=== PATIENT | male | born 1945 | race Caucasian/White ===

== ENCOUNTER → 2017-04-12 12:30 | Outpatient (CLI) | payer MEDICARE, BC, SELFPAY ==
[2017-04-12 13:36] LABS: Prostate Specific Ag, Diagnost 19.57 ng/mL (0.0-4.0)
== END ==
LOC: LAB 12:33
PROVIDERS: PCP Emergency Medicine; Visit Provider Urology
DX: R97.20 Elevated prostate specific antigen [PSA] (principal)
CPT/HCPCS: 36415; 84153

== ENCOUNTER 2017-04-12 14:01 | Emergency (ER) | payer MEDICARE, BC, SELFPAY ==
[2017-04-12 14:02] VITALS: BP 100/44; PULSE 97; RESP 14; TEMP 36.9; O2SAT 988; BMI 42.7
--- NOTE | 2017-04-12 15:10 | HMH.EDGENADL ---
ED Disposition Clinical Impression: Herpes zoster Qualifiers: Herpes zoster complications: without complications Qualified Code(s): B02.9 - Zoster without complications Disposition: Home, Self-Care Condition on Discharge: Good Instructions: DI for Skin Abscess Additional Instructions: Please take the prescription for acyclovir as per Dr Clemons's instructions (whom you have seen earlier today). Please keep the lesions covered, as it may contaminate other residents. Referrals: Zay Bob MD [Primary Care Provider] - Time of Disposition: 15:11 - Critical Care Critical Care Time: No Attestation: On 04/12/17, the high probability of a clinically significant, sudden or life threatening deterioration of the following system(s) required my full and direct attention, intervention and personal management. The time I documented below is in addition to time spent performing reported procedures but includes the following listed in this critical care notation. Medical Decision Making - Medical Records Medical records reviewed: Yes: I reviewed the patient's medical records. Vital Signs: 04/12/17 14:02 04/12/17 17:54 Temperature 98.5 F 98.5 F Temperature Source Oral Oral Pulse Rate 89 Pulse Rate [Left Brachial] 97 H Respiratory Rate 14 14 Blood Pressure 136/60 Blood Pressure [Right Arm] 100/44 Blood Pressure Mean [Right Arm] 62 Blood Pressure Source Automatic Cuff Blood Pressure Source [Right Arm] Automatic Cuff Blood Pressure Position Sitting Blood Pressure Position [Right Arm] Sitting 02 Sat by Pulse Oximetry 988 H Oxygen Delivery Method Room Air Room Air - Edis Inquiry Pt receiving controlled substance: No - Reevaluation(s) Time: 14:50 Reevaluation #1: Patient appears in no acute distress, advised to continue the prescription given by Dr. Clemons, acyclovir, and keep affected area covered, to prevent possible exposure to other residents. General Adult HPI - General Chief complaint: Skin/Abscess/Foreign Body Stated complaint: shinglessssssssssss Time Seen by Provider: 04/12/17 14:20 Mode of Arrival: Ambulatory Limitations: No Limitations Description of Symptoms (Recalled from ER Triage Doc. by RN): Pt sent here for shingles. Pt seen this morning and was given medicine. They were concerned with pt being in contact with other residents. - History of Present Illness HPI narrative: Patient was already seen at that Dr. Clemons's office for urinary problems, prior to presentation to the emergency room. Dr. Clemons has called the emergency room asking for advice on treatment of what appears to be shingles on patient's right upper abdomen, with onset approximately 2 days ago. MD complaint: rash, apin in th eright upper anterior abdomen Onset (ago): day(s) (2-3) Location: abdomen (right upper abd) Radiation: non-radiation Severity: moderate Severity scale (1-10): 6 Quality: burning Consistency: intermittent Relieving factors: none - Related Data Home Medications Medication Instructions Recorded Confirmed acetaminophen 500 mg capsule 500 mg PO Q4H PRN 04/12/17 docusate sodium 250 mg capsule 250 mg PO QDAY 04/12/17 folic acid 1 mg tablet 1 mg PO QDAY 04/12/17 hydroxyzine pamoate 25 mg capsule 25 mg PO TID-QID PRN 04/12/17 mirtazapine 15 mg tablet 15 mg PO QHS 04/12/17 multivitamin capsule 1 cap PO QAM 04/12/17 thiamine HCl (vitamin B1) 100 100 mg IV QDAY 04/12/17 mg/mL injection solution trazodone 50 mg tablet 50 mg PO QHS PRN 04/12/17 Allergies Allergy/AdvReac Type Severity Reaction Status Date / Time PCN (penicillin) Allergy Unknown Uncoded 03/13/17 15:34 [facility] History I have reviewed the patient's past medical history: Yes Medical History: Denies:: Cancer, Diabetes Mellitus Type 1, Diabetes Mellitus Type 2, MRSA Amputation: No Fractures: No - *Social History Alcohol Intake: never - Psychiatric History Expresses thoughts of harming self/others: None Dory
[2017-04-12 17:54] VITALS: BP 136/60; PULSE 89; RESP 14; TEMP 36.9; O2SAT 98
== END 2017-04-12 17:56 | disposition home or self-care (01) ==
PROVIDERS: Emergency Provider Emergency Medicine; PCP Emergency Medicine
DX: B02.9 Zoster without complications (principal); Z79.899 Other long term (current) drug therapy; Z88.0 Allergy status to penicillin; R97.20 Elevated prostate specific antigen [PSA]
CPT/HCPCS: 36415; 84153; 99282

== ENCOUNTER 2017-05-03 07:46 | Emergency (ER) | payer MEDICARE, BC, SELFPAY ==
[2017-05-03 07:48] VITALS: BP 107/45; PULSE 62; RESP 20; TEMP 36.7; O2SAT 97; BMI 26.6
--- NOTE | 2017-05-03 08:08 | HMH.EDGENADL ---
ED Disposition Clinical Impression: Cellulitis Qualifiers: Site of cellulitis: unspecified site Qualified Code(s): L03.90 - Cellulitis, unspecified Disposition: Home, Self-Care Condition on Discharge: Good Instructions: Cellulitis Additional Instructions: have wound care at intermediate see pt and manage wound - Critical Care Critical Care Time: No Attestation: On , the high probability of a clinically significant, sudden or life threatening deterioration of the following system(s) required my full and direct attention, intervention and personal management. The time I documented below is in addition to time spent performing reported procedures but includes the following listed in this critical care notation. Medical Decision Making - Medical Records Medical records reviewed: Yes: I reviewed the patient's medical records. Vital Signs: 05/03/17 07:48 Temperature 98.1 F Temperature Source Oral Pulse Rate [Right Radial] 62 Respiratory Rate 20 Blood Pressure [Right Arm] 107/45 Blood Pressure Mean [Right Arm] 65 Blood Pressure Source [Right Arm] Automatic Cuff Blood Pressure Position [Right Arm] Sitting 02 Sat by Pulse Oximetry 97 Oxygen Delivery Method Room Air - Lab Data Lab results reviewed: Yes: I reviewed the patient's lab results. Orders (Tests/Meds): ORDERS Category Date Time Status Wound Culture and Gram Stain Routine Micro 05/03/17 08:00 Ordered - Edis Inquiry Pt receiving controlled substance: No General Adult HPI - General Chief complaint: PAIN Stated complaint: OPEN AREA TO ANTECUBITAL Time Seen by Provider: 05/03/17 08:08 Mode of Arrival: EMS Limitations: No Limitations Description of Symptoms (Recalled from ER Triage Doc. by RN): PT HAS AN APPROX 1 1/2 INCH OPEN AREA TO R ANTECUBITAL AREA WITH REDNESS AND SWELLING . PT ALSO C/O RASH TO THE R SIDE GOING AROUND TO THE FLANK AREA WITH LOTS OF PAIN X 2 WEEKS NO OPEN SORES APPEARS TO BE IMPROVING - History of Present Illness HPI narrative: pt with open area rt antecubital and has resolving shingles Onset (ago): hour(s) Location: upper extremity Severity: moderate - Related Data Home Medications Medication Instructions Recorded Confirmed acetaminophen 500 mg capsule 500 mg PO Q4H PRN 04/12/17 docusate sodium 250 mg capsule 250 mg PO QDAY 04/12/17 folic acid 1 mg tablet 1 mg PO QDAY 04/12/17 hydroxyzine pamoate 25 mg capsule 25 mg PO TID-QID PRN 04/12/17 mirtazapine 15 mg tablet 15 mg PO QHS 04/12/17 multivitamin capsule 1 cap PO QAM 04/12/17 thiamine HCl (vitamin B1) 100 100 mg IV QDAY 04/12/17 mg/mL injection solution trazodone 50 mg tablet 50 mg PO QHS PRN 04/12/17 Allergies Allergy/AdvReac Type Severity Reaction Status Date / Time PCN (penicillin) Allergy Mild Uncoded 05/03/17 08:03 [facility] History I have reviewed the patient's past medical history: Yes Medical History: Denies:: Cancer, Diabetes Mellitus Type 1, Diabetes Mellitus Type 2, MRSA Amputation: No Fractures: No - *Social History Alcohol Intake: never ROS Obtained: Yes All systems reviewed & no additional complaints - Constitutional Constitutional: Denies fever(s) - Eyes Eyes: Denies change in vision - ENT Ears, Nose, Mouth, and Throat: Denies sore throat - Cardiovascular Cardiovascular: Denies chest pain at rest - Respiratory Respiratory: No cough - Gastrointestinal Gastrointestingal: Denies: abdominal pain - Musculoskeletal Musculoskeletal: Denies joint pain - Integumentary/Breasts Skin/Breast: Reports as per HPI - Neurologic Neurologic: Denies seizure-like activity Physical Exam - General General appearance: in no apparent distress - Head Head exam: normocephalic - Eye Eye exam: Present: PERRL, EOMI - ENT ENT exam: Present: mucous membranes moist - Neck Neck exam: Present: trachea midline - Respiratory Respiratory exam: Absent: respiratory distress - Cardiovascular Card
--- NOTE | 2017-05-03 08:12 | ED_ITS ---
ED Disposition Clinical Impression: Cellulitis Qualifiers: Site of cellulitis: unspecified site Qualified Code(s): L03.90 - Cellulitis, unspecified Disposition: Home, Self-Care Condition on Discharge: Good Instructions: Cellulitis Additional Instructions: have wound care at skilled nursing see pt and manage wound - Critical Care Critical Care Time: No Attestation: On , the high probability of a clinically significant, sudden or life threatening deterioration of the following system(s) required my full and direct attention, intervention and personal management. The time I documented below is in addition to time spent performing reported procedures but includes the following listed in this critical care notation. Medical Decision Making - Medical Records Medical records reviewed: Yes: I reviewed the patient's medical records. Vital Signs: 05/03/17 07:48 Temperature 98.1 F Temperature Source Oral Pulse Rate [Right Radial] 62 Respiratory Rate 20 Blood Pressure [Right Arm] 107/45 Blood Pressure Mean [Right Arm] 65 Blood Pressure Source [Right Arm] Automatic Cuff Blood Pressure Position [Right Arm] Sitting 02 Sat by Pulse Oximetry 97 Oxygen Delivery Method Room Air - Lab Data Lab results reviewed: Yes: I reviewed the patient's lab results. Orders (Tests/Meds): ORDERS Category Date Time Status Wound Culture and Gram Stain Routine Micro 05/03/17 08:00 Ordered - Edis Inquiry Pt receiving controlled substance: No General Adult HPI - General Chief complaint: PAIN Stated complaint: OPEN AREA TO ANTECUBITAL Time Seen by Provider: 05/03/17 08:08 Mode of Arrival: EMS Limitations: No Limitations Description of Symptoms (Recalled from ER Triage Doc. by RN): PT HAS AN APPROX 1 1/2 INCH OPEN AREA TO R ANTECUBITAL AREA WITH REDNESS AND SWELLING . PT ALSO C /O RASH TO THE R SIDE GOING AROUND TO THE FLANK AREA WITH LOTS OF PAIN X 2 WEEKS NO OPEN SORES APPEARS TO BE IMPROVING - History of Present Illness HPI narrative: pt with open area rt antecubital and has resolving shingles Onset (ago): hour(s) Location: upper extremity Severity: moderate - Related Data Home Medications Medication Instructions Recorded Confirmed acetaminophen 500 mg capsule 500 mg PO Q4H PRN 04/12/17 docusate sodium 250 mg capsule 250 mg PO QDAY 04/12/17 folic acid 1 mg tablet 1 mg PO QDAY 04/12/17 hydroxyzine pamoate 25 mg capsule 25 mg PO TID-QID PRN 04/12/17 mirtazapine 15 mg tablet 15 mg PO QHS 04/12/17 multivitamin capsule 1 cap PO QAM 04/12/17 thiamine HCl (vitamin B1) 100 100 mg IV QDAY 04/12/17 mg/mL injection solution trazodone 50 mg tablet 50 mg PO QHS PRN 04/12/17 Allergies Allergy/AdvReac Type Severity Reaction Status Date / Time PCN (penicillin) Allergy Mild Uncoded 05/03/17 08:03 [facility] History I have reviewed the patient's past medical history: Yes Medical History: Denies:: Cancer, Diabetes Mellitus Type 1, Diabetes Mellitus Type 2, MRSA Amputation: No Fractures: No - *Social History Alcohol Intake: never ROS Obtained: Yes All systems reviewed & no additional complaints - Constitutional Constitutional: Denies fever(s) - Eyes Eyes: Denies change in vision - ENT Ears, Nose, Mouth,
--- NOTE | 2017-05-03 08:15 | PC.NURSE ---
Pt has a wound to right a/c. Wound cleaned with hibiclens and sterile water. Bacitracin applied. Wound dressed with telfa and mesh sleeve applied (per Dr Bob) Pt tolerated well.
[2017-05-03 09:16] VITALS: BP 108/75; PULSE 64; RESP 18; TEMP 37; O2SAT 97
== END 2017-05-03 09:15 | disposition home or self-care (01) ==
PROVIDERS: Emergency Provider Emergency Medicine; PCP Emergency Medicine
DX: L03.111 Cellulitis of right axilla (principal); Z79.899 Other long term (current) drug therapy; Z88.0 Allergy status to penicillin
CPT/HCPCS: 87070; 87077; 87186; 87205; 90471; 90715; 96375; 99281

== ENCOUNTER → 2018-04-11 11:51 | Outpatient (CLI) | payer MEDICARE, BC, SELFPAY ==
[2018-04-11 13:04] LABS: Prostate Specific Ag, Diagnost 18.58 ng/mL (0.0-4.0)
== END ==
PROVIDERS: Visit Provider Urology
DX: R97.20 Elevated prostate specific antigen [PSA] (principal)
CPT/HCPCS: 36415; 84153

== ENCOUNTER 2018-04-23 11:16 | Observation (INO) ==
--- NOTE | 2018-04-23 11:27 | Emergency Department Note ---
ED Disposition Clinical Impression: Abdominal pain, generalized Disposition: Admitted as Observation Condition on Discharge: Fair Instructions: DI for Acute Abdomen Referrals: Zay Bob MD [Primary Care Provider] - - Critical Care Critical Care Time: No Attestation: On , the high probability of a clinically significant, sudden or life threatening deterioration of the following system(s) required my full and direct attention, intervention and personal management. The time I documented below is in addition to time spent performing reported procedures but includes the following listed in this critical care notation. Medical Decision Making - Edis Inquiry Pt receiving controlled substance: Yes Edis was queried for this patient: No Reason not queried -: Emergent pt cond-no time Risks and benefits of using a controlled substance: were not discussed with pt by me Vital Signs: 04/23/18 11:22 04/23/18 11:46 04/23/18 11:47 Temperature 98.1 F Temperature Source Oral Pulse Rate [Left Radial] 50 L 52 L 53 L Respiratory Rate 20 16 14 Blood Pressure [Right Arm] 120/67 131/76 133/72 Blood Pressure Mean [Right Arm] 84 94 92 Blood Pressure Source [Right Arm] Automatic Cuff Automatic Cuff Automatic Cuff Blood Pressure Position [Right Arm] Sitting Sitting Sitting 02 Sat by Pulse Oximetry 98 98 99 Oxygen Delivery Method Room Air Room Air Room Air - Lab Data Lab Results 04/23/18 11:10: WBC 9.1, RBC 3.99 L, Hgb 13.4 L, Hct 42.3, MCV 106.0 H, MCH 33.6 H, MCHC 31.7 L, RDW 12.1, Plt Count 187, MPV 8.4, Neut % (Auto) 63.1, Lymph % (Auto) 30.9, [place] % (Auto) 4.1, Eos % (Auto) 1.3, Baso % (Auto) 0.6, Neut # (Auto) 5.7, Lymph # (Auto) 2.8, [place] # (Auto) 0.4, Eos # (Auto) 0.1, Baso # (Auto) 0.1 04/23/18 11:10: Sodium 140, Potassium 4.4, Chloride 103, Carbon Dioxide 29, A nion Gap 12.4, BUN 12, Creatinine 1.00, Estimated Creat Clear 65, Estimated GFR 74, Est GFR ( Amer) 89, Glucose 149 H, Calcium 8.4 L, Total Bilirubin 0.4, AST 12 L, ALT 16, Alkaline Phosphatase 68, Troponin I < 0.02, Total Protein 7.0, Albumin 3.5, Globulin 3.5 H, Albumin/Globulin Ratio 1.0 L, Amylase 58, Lipase 117 Result diagrams: 04/23/18 11:10 04/23/18 11:10 Orders (Tests/Meds): ED MEDICATIONS Generic Name Dose Route Start Last Admin Trade Name Radhika PRN Reason Stop Dose Admin Sodium Chloride 10 ml 04/23/18 11:22 04/23/18 12:57 Saline Flush 10ml Syringe IV 05/23/18 11:21 10 ml NEEDED PRN Administration Maintain IV Site Sodium Chloride 10 ml 04/23/18 12:35 04/23/18 12:30 Rad-Saline Flush 10ml Syringe IV 05/23/18 12:34 10 ml NEEDED PRN Administration Maintain IV Site Discontinued Medications Generic Name Dose Route Start Last Admin Trade Name Ritchieq PRN Reason Stop Dose Admin Famotidine 20 mg 04/23/18 11:22 04/23/18 11:28 Pepcid 20mg/2ml Vial IV 04/23/18 11:23 20 mg ONCE ONE Administration Iopamidol 100 ml 04/23/18 12:35 04/23/18 12:30 [id number]; 100ml Vial IV 04/23/18 12:36 75 ml ONCE ONE Administration Protocol Ketorolac Tromethamine 15 mg 04/23/18 12:05 04/23/18 12:08 Toradol 30mg/Ml Vial IV 04/23/18 12:06 15 mg ONCE ONE Administration Morphine Sulfate 4 mg 04/23/18 11:22 04/23/18 11:28 Morphine 4mg/Ml Syringe IV 04/23/18 11:23 4 mg ONCE ONE Administration Morphine Sulfate 4 mg 04/23/18 12:05 04/23/18 12:08 Morphine 4mg/Ml Syringe IV 04/23/18 12:06 4 mg ONCE ONE Administration Ondansetron HCl 4 mg 04/23/18 11:22 04/23/18 11:28 Zofran 4mg/2ml Vial IV 04/23/18 11:23 4 mg ONCE ONE Administration Ondansetron HCl 4 mg 04/23/18 12:54 04/23/18 12:57 Zofran 4mg/2ml Vial IV 04/23/18 12:55 4 mg ONCE ONE Administration Sodium Chloride 1,000 ml 04/23/18 11:36 04/23/18 11:42 Sod Chlor 0.9% 1000ml Bag IV 04/23/18 11:37 1,000 ml BOLUS ONE Administration ORDERS Category Date Time Status Urinalysis and Microscopic Stat Lab 04/23/18 11:23 Ordered - CT Data CT Scan: Abdomen, Pelvis Time Received: 13:[address] Reviewed: Yes: I have viewed the radiologist's interpretation Findings Narrative: IMPRESSION: 1. Mild generalized ascites. 2. Nonspecific bowel gas pattern with some scattered air-fluid levels within the small bowel which may be seen with enteritis or ileus. 3. Distended gallbladder. No radio opaque stones. Dictated By: Raheem Brown MD Signed By: <Electronically signed by Raheem Brown MD in OV> 04/23/18 1255 - ECG Data Tracing #1 EKG interpreted by James Hernandez MD: Rhythm: sinus bradycardia Rate: 53 [place]: Right Ectopy: Premature ventricular contraction Conduction: normal ST Segment Changes: none T Wave Changes: none Q Waves: none No evidence of acute ischemia or injury Prior electrocardiagrams reviewed. No change from prior tracings. - Physician Consults Physician Consulted: Paulino Time: 13:27 Reason -: Admission Comment/Response: Agrees to admit the patient to the hospital. We discussed the patient's clinical information, including history, exam, laboratory and radio logy results and ED course. Per hospital procedure, I will write temporary bridge inpatient orders on the patient. Specific orders requested by the admitting physician: Pain medication, nausea medication, IV fluids, gallbladder ultrasound, surgery consult - Reevaluation(s) Time: 13:20 Reevaluation #1: Still has pain and nausea General Adult HPI - General Chief complaint: Abdominal Pain Stated complaint: abd pain Time Seen by Provider: 04/23/18 11:20 - History of Present Illness HPI narrative: Brought in by ambulance with complaint of abdominal pain and vomiting. Patient states symptoms started about 730 this morning. He has vomited twice. His abdominal pain is diffuse. Denies diarrhea. States "I emptied my bowels out" but it was not diarrhea. No blood. States he has had this before, many years ago, does not remember any of the details. He has had a prior abdominal surgery for ulcers and appendectomy. He is a smoker, nondrinker. Last ate breakfast this morning after the pain had started. [place] and cereal. - Related Data Home Medications Medication Instructions Recorded Confirmed acetaminophen 500 mg capsule 500 mg PO Q4H PRN 04/12/17 04/23/18 docusate sodium 250 mg capsule 250 mg PO QDAY 04/12/17 04/23/18 folic acid 1 mg tablet 1 mg PO QDAY 04/12/17 04/23/18 hydroxyzine pamoate 25 mg capsule 25 mg PO TID-QID PRN 04/12/17 04/23/18 mirtazapine 15 mg tablet 15 mg PO QHS 04/12/17 04/23/18 multivitamin capsule 1 cap PO QAM 04/12/17 04/23/18 thiamine HCl (vitamin B1) 100 100 mg IV QDAY 04/12/17 04/23/18 mg/mL injection solution trazodone 50 mg tablet 50 mg PO QHS PRN 04/12/17 04/23/18 loperamide 2 mg capsule 2 mg PO Q4H 04/11/18 04/23/18 Allergies Allergy/AdvReac Type Severity Reaction Status Date / Time PCN (penicillin) Allergy Mild Uncoded 04/11/18 11:12 [facility] History - Hepatitis A Screen Attestation statement:: This patient has been screened for Hepatitis A risk factors. I have reviewed the patient's past medical history: Yes Medical History: Denies:: Cancer, Diabetes Mellitus Type 1, Diabetes Mellitus Type 2, MRSA Amputation: No Fractures: No - Social History Smoking Status: Current every day smoker Alcohol Intake: never Occupational Status: unemployed ROS Obtained: Yes All systems reviewed & no additional complaints - Constitutional Constitutional: Reports excessive sweating, Denies fever(s) - Cardiovascular Cardiovascular: Denies chest pain - Respiratory Respiratory: No dyspnea - Gastrointestinal Gastrointestingal: Reports: abdominal pain, nausea, vomiting. Denies: diarrhea Physical Exam - General General appearance: alert, in distress (Pain) - Head Head exam: atraumatic, normocephalic - Eye Eye exam: Present: normal appearance, PERRL, EOMI - ENT ENT exam: Present: mucous membranes moist - Neck Neck exam: Present: normal inspection, trachea midline - Chest Chest inspection: Present: normal inspection, symmetric chest wall rise - Respiratory Respiratory exam: Present: normal lung sounds bilaterally. Absent: respiratory distress - Cardiovascular Cardiovascular exam: Present: regular rate, normal rhythm, normal heart sounds - Abdominal Exam Abdominal exam: Present: soft, tenderness. Absent: distention Abdominal tenderness: Present: RUQ (Moderate to severe), RLQ (Mild) - Neurological Exam Neurological exam: Present: alert, oriented X3 - Psychiatric Psychiatric exam: Present: normal affect, normal mood - Skin Skin exam: Present: warm, dry
[2018-04-23 11:36] LABS: Basophils # 0.1 K/mm3 (0-0.2); Basophils % 0.6 % (0.1-2.0); Eosinophils # 0.1 K/mm3 (0.0-0.4); Eosinophils % 1.3 % (0.1-12.0); Hematocrit 42.3 % (42.0-52.0); Hemoglobin 13.4 g/dL (14.1-18.0); Lymphocytes # 2.8 K/mm3 (0.7-4.5); Lymphocytes % 30.9 % (10-50); Mean Corpuscular HGB Conc 31.7 g/dL (31.8-35.4); Mean Corpuscular Hemoglobin 33.6 pg (27.0-31.2); Mean Platelet Volume 8.4 fl (7.4-10.4); Monocytes # 0.4 K/mm3 (0.1-1.0); Monocytes % 4.1 % (1.7-9.3); Neutrophils # 5.7 K/mm3 (1.8-7.8); Neutrophils % 63.1 % (37.0-80.0); Platelet Count 187 K/mm3 (142-424); Red Blood Count 3.99 M/mm3 (4.60-6.20); Red Cell Distribution Width 12.1 % (11.5-17.5); White Blood Count 9.1 K/mm3 (4.8-10.8)
[2018-04-23 11:47] LABS: Alanine Aminotransferase 16 U/L (12-78); Albumin Level 3.5 gm/dL (3.4-5.0); Alkaline Phosphatase 68 U/L (46-116); Amylase 58 U/L (25-115); Anion Gap 12.4 mEq/L (5-15); Aspartate Amino Transferase 12 U/L (15-37); Bilirubin,Total 0.4 mg/dL (0.2-1.0); Blood Urea Nitrogen 12 mg/dL (7-18); Calcium 8.4 mg/dL (8.5-10.1); Carbon Dioxide 29 mmol/L (21.0-32.0); Chloride 103 mmol/L (98-107); Globulin 3.5 gm/dl (1.3-3.2); Glucose 149 mg/dL (74-106); Lipase 117 u/L (73-393); Potassium 4.4 mmoL/L (3.5-5.1); Sodium 140 mmol/L (136-145)
[2018-04-23 14:21] LABS: Microscopic, Urine URINE MICROSCOPIC (MICROSCOPIC)
[2018-04-23 14:25] LABS: Appearance,Urine CLEAR (Clear); Bilirubin,Urine Negative (Negative); Blood, Urine Negative (Negative); Color,Urine YELLOW (Yellow); Glucose,Urine (UA) Negative (Negative); Ketones,Urine Negative (Negative); Leukocyte Esterase,Urine Negative (Negative); PH,Urine 6.5 (5.0-8.5); Protein,Urine Negative (Negative); Specific Gravity, Urine 1.015 (1.005-1.030); Urobilinogen,Urine 0.2 EU/dl (0.2)
[2018-04-23 14:40] LABS: Bacteria,Urine Trace /lpf; Squamous Epithelial Cell,Urine Occasional #/hpf (0-5); WBC,Urine Occasional #/hpf (0-3)
[2018-04-23 14:41] LABS: Mucus,Urine Trace /lpf
--- NOTE | 2018-04-23 15:52 | Pharmacy Consult Notes ---
[facility] Pharm[facility] VTE Monitoring - Patient Demographics Admission date: 04/23/18 Report Date: 04/23/18 Time: 15:52 Allergies/Adverse Reactions: Patient Allergies Penicillins Allergy (Mild, Verified 04/23/18 13:53) Unknown allergy reaction Height: 1.83 m Weight: 55.026 kg Patient Problems: Current Active Problems Abdominal pain, generalized (Acute) - VTE Risk Labs: VTE Related Lab Results Hgb 13.4 g/dL (14.1-18.0) L 04/23/18 11:10 Hct 42.3 % (42.0-52.0) 04/23/18 11:10 Plt Count 187 K/mm3 (142-424) 04/23/18 11:10 BUN 12 mg/dL (7-18) 04/23/18 11:10 Creatinine 1.00 mg/dL (0.70-1.30) 04/23/18 11:10 Estimated Creat Clear 65 mL/min (50-200) 04/23/18 11:10 VTE Score: 1 - Prophylaxis VTE Prophylaxis Ordered?: Yes Types of VTE Prophylaxis: TEDS Knee High Location of Applied Device: Bilateral Lower Extremeties
--- NOTE | 2018-04-23 16:01 | Consult Report ---
*Admission Date: 04/23/18 *Chief complaint: Silvio pain *History of present illness: Patient is a 72-year-old [place] [employer]. He states that he has been having abdominal pain for a couple of days. He describes this as diffuse and "all over". There are no exacerbating or alleviating. It is constant. He has had some apparent nausea. No other changes in habits. He was brought by ambulance to the emergency department where he underwent evaluation. Thorough emergency room evaluation inclusive with normal blood work including CBC, pancreatic enzymes, liver function tests. CT scan of the abdomen and pelvis with intravenous contrast reveals prominent gallbladder, nonspecific bowel gas pattern, "mild ascites". Due to his pain on examination he was admitted for inpatient management. Surgical consultation was obtained for abdominal pain. It appears that the patient has had prior open appendectomy. He is also had a midline laparotomy which she states was done for ulcer disease in the past. Review of Systems - Review of Systems Review of systems:: unable to obtain [facility] History Medical History: Denies:: Cancer, Diabetes Mellitus Type 1, Diabetes Mellitus Type 2, MRSA Have you ever received a pneumonia vaccine?: Yes Have you received a flu vaccine this season?: Yes Amputation: No Fractures: No - *Social History Smoking Status: Current every day smoker Tobacco Type: cigarettes Alcohol Intake: never Occupational Status: unemployed Travel in the last 8 weeks: None - Psychiatric History Expresses thoughts of harming self/others: None Suicide Plan Description: No Plan Meds Home Medications Medication Instructions Recorded Confirmed Type docusate sodium 250 mg capsule 250 mg PO DAILY 04/12/17 04/23/18 History folic acid 1 mg tablet 1 mg PO DAILY 04/12/17 04/23/18 History mirtazapine 15 mg tablet 15 mg PO 04/12/17 04/23/18 History multivitamin capsule 2 cap PO BID 04/12/17 04/23/18 History loperamide 2 mg capsule 2 mg PO Q4HP PRN 04/11/18 04/23/18 History Tamsulosin HCl [Flomax 0.4mg 0.4 mg PO 04/23/18 04/23/18 History capsule] Thiamine HCl [Vitamin B-1 100mg 100 mg PO DAILY 04/23/18 04/23/18 History tablet] Trazodone HCl 50 mg PO HS 04/23/18 04/23/18 History Allergies Allergy/AdvReac Type Severity Reaction Status Date / Time Penicillins Allergy Mild Unknown Verified 04/23/18 13:53 allergy reaction Exam Vital signs and Labs for Last 24 Hours: Temp Pulse Resp BP Pulse Ox 98.2 F 60 20 139/61 94 L 04/23/18 14:30 04/23/18 14:30 04/23/18 14:30 04/23/18 14:30 04/23/18 14:30 Laboratory Results - last 24 hr 04/23/18 11:10: WBC 9.1, RBC 3.99 L, Hgb 13.4 L, Hct 42.3, MCV 106.0 H, MCH 33.6 H, MCHC 31.7 L, RDW 12.1, Plt Count 187, MPV 8.4, Neut % (Auto) 63.1, Lymph % (Auto) 30.9, [place] % (Auto) 4.1, Eos % (Auto) 1.3, Baso % (Auto) 0.6, Neut # (Auto) 5.7, Lymph # (Auto) 2.8, [place] # (Auto) 0.4, Eos # (Auto) 0.1, Baso # (Auto) 0.1 04/23/18 11:10: Sodium 140, Potassium 4.4, Chloride 103, Carbon Dioxide 29, Anion Gap 12.4, BUN 12, Creatinine 1.00, Estimated Creat Clear 65, Estimated GFR 74, Est GFR ( Amer) 89, Glucose 149 H, Calcium 8.4 L, Total Bilirubin 0.4, AST 12 L, ALT 16, Alkaline Phosphatase 68, Troponin I < 0.02, Total Protein 7.0, Albumin 3.5, Globulin 3.5 H, Albumin/Globulin Ratio 1.0 L, Amylase 58, Lipase 117 04/23/18 14:10: Urine Color Yellow, Urine Appearance Clear, Urine pH 6.5, Ur Specific [place] 1.015, Urine Protein Negative, Urine Glucose (UA) Negative, Urine Ketones Negative, Urine Blood Negative, Urine Nitrate Negative, Urine Bilirubin Negative, Urine Urobilinogen 0.2, Ur Leukocyte Esterase Negative, Urine RBC None, Urine WBC Occasional, Ur Squamous Epith Cells Occasional, Urine Bacteria Trace, Urine Mucus Trace I & O for Last 24 hours: Intake & Output 01/2704/22/18 04/23/18 04/24/18 11:59 11:59 11:59 11:59 Weight 150 lb 121 lb 5 oz - Constitutional no acute distress - *Routine HEENT Exam Head: Present: normocephalic Eye: Present: EOMI, PERRL ENT: Present: mucous membranes moist - *Routine Neck Exam Present: supple. Absent: lymphadenopathy - *Routine Respiratory Exam Present: CTA bilaterally - *Routine Cardiovascular Exam Present: RRR - *Routine Abdominal Exam Present: soft, normoactive bowel sounds, tenderness Comments: He does have some diffuse tenderness with some voluntary guarding in the right upper quadrant. No rebound. He has extensive abdominal scarring from prior surgeries. - *Routine Extremities Exam Absent: cyanosis, clubbing, edema - *Routine Skin Exam Present: warm. Absent: rash - *Routine Neurological Exam Present: alert, oriented X3 - Detailed Eye Exam Eyelids: Left normal inspection Results - Labs 04/23/18 11:10 04/23/18 11:10 Laboratory Results - last 24 hr 04/23/18 11:10: WBC 9.1, RBC 3.99 L, Hgb 13.4 L, Hct 42.3, MCV 106.0 H, MCH 33.6 H, MCHC 31.7 L, RDW 12.1, Plt Count 187, MPV 8.4, Neut % (Auto) 63.1, Lymph % (Auto) 30.9, [place] % (Auto) 4.1, Eos % (Auto) 1.3, Baso % (Auto) 0.6, Neut # (Auto) 5.7, Lymph # (Auto) 2.8, [place] # (Auto) 0.4, Eos # (Auto) 0.1, Baso # (Auto) 0.1 04/23/18 11:10: Sodium 140, Potassium 4.4, Chloride 103, Carbon Dioxide 29, Anion Gap 12.4, BUN 12, Creatinine 1.00, Estimated Creat Clear 65, Estimated GFR 74, Est GFR ( Amer) 89, Glucose 149 H, Calcium 8.4 L, Total Bilirubin 0.4, AST 12 L, ALT 16, Alkaline Phosphatase 68, Troponin I < 0.02, Total Protein 7.0, Albumin 3.5, Globulin 3.5 H, Albumin/Globulin Ratio 1.0 L, Amylase 58, Lipase 117 04/23/18 14:10: Urine Color Yellow, Urine Appearance Clear, Urine pH 6.5, Ur Specific [place] 1.015, Urine Protein Negative, Urine Glucose (UA) Negative, Urine Ketones Negative, Urine Blood Negative, Urine Nitrate Negative, Urine Bilirubin Negative, Urine Urobilinogen 0.2, Ur Leukocyte Esterase Negative, Urine RBC None, Urine WBC Occasional, Ur Squamous Epith Cells Occasional, Urine Bacteria Trace, Urine Mucus Trace Assessment and Plan - Assessment and plan all Dx Assessment and Plan for all problems:: Patient has abdominal pain and tenderness of uncertain etiology. The differential diagnosis is quite widespread at this time and include surgical and nonsurgical etiologies. Continuation of workup and evaluation warranted. I do agree with ultrasound which has been ordered.
--- NOTE | 2018-04-23 21:49 | History & Physical Report ---
*Admission Date: 04/23/18 *Chief complaint: abd pain *History of present illness: [facility] started with abd pain - rought in by ambulance with complaint of abdominal pain and vomiting. Patient states symptoms started about 730 this morning. He has vomited twice. His abdominal pain is diffuse. Denies diarrhea. States "I emptied my bowels out" but it was not diarrhea. No blood. States he has had this before, many years ago, does not remember any of the details. He has had a prior abdominal surgery for ulcers and appendectomy. He is a smoker, nondrinker. Last ate breakfast this morning after the pain had started. [facility] History I have reviewed the patient's past medical history: Yes Medical History: Denies:: Cancer, Diabetes Mellitus Type 1, Diabetes Mellitus Type 2, MRSA Have you ever received a pneumonia vaccine?: Yes Have you received a flu vaccine this season?: Yes Amputation: No Fractures: No - *Social History Smoking Status: Current every day smoker Tobacco Type: cigarettes Alcohol Intake: never Occupational Status: unemployed Travel in the last 8 weeks: None - Psychiatric History Expresses thoughts of harming self/others: None Suicide Plan Description: No Plan Review of Systems - Review of Systems Review of systems:: pertinent systems reviewed and negative unless documented below - Constitutional Denies fever(s) - Eyes Denies change in vision - ENT Denies headache(s) - *Cardiovascular Denies chest pain at rest - *Respiratory Denies cough, Denies shortness of breath - *Gastrointestinal Reports abdominal pain, Reports nausea, Reports vomiting - *Genitourinary Denies blood in urine - *Musculoskeletal Denies neck pain - Integumentary/Breasts Denies rash - *Neurologic Denies headache(s), Denies seizure-like activity - Psychiatric Denies anxiety Meds Home Medications Medication Instructions Recorded Confirmed Type docusate sodium 250 mg capsule 250 mg PO DAILY 04/12/17 04/23/18 History folic acid 1 mg tablet 1 mg PO DAILY 04/12/17 04/23/18 History mirtazapine 15 mg tablet 15 mg PO HS 04/12/17 04/23/18 History multivitamin capsule 2 cap PO BID 04/12/17 04/23/18 History loperamide 2 mg capsule 2 mg PO Q4HP PRN 04/11/18 04/23/18 History Tamsulosin HCl [Flomax 0.4mg 0.4 mg PO HS 04/23/18 04/23/18 History capsule] Thiamine HCl [Vitamin B-1 100mg 100 mg PO DAILY 04/23/18 04/23/18 History tablet] Trazodone HCl 50 mg PO HS 04/23/18 04/23/18 History Allergies Allergy/AdvReac Type Severity Reaction Status Date / Time Penicillins Allergy Mild Unknown Verified 04/23/18 13:53 allergy reaction Exam Vital signs and Labs for Last 24 Hours: Temp Pulse Resp BP Pulse Ox 99.4 F 62 18 120/60 98 04/23/18 20:00 04/23/18 20:00 04/23/18 20:00 04/23/18 20:00 04/23/18 20:00 Laboratory Results - last 24 hr 04/23/18 11:10: WBC 9.1, RBC 3.99 L, Hgb 13.4 L, Hct 42.3, MCV 106.0 H, MCH 33.6 H, MCHC 31.7 L, RDW 12.1, Plt Count 187, MPV 8.4, Neut % (Auto) 63.1, Lymph % (Auto) 30.9, [place] % (Auto) 4.1, Eos % (Auto) 1.3, Baso % (Auto) 0.6, Neut # (Auto) 5.7, Lymph # (Auto) 2.8, [place] # (Auto) 0.4, Eos # (Auto) 0.1, Baso # (Auto) 0.1 04/23/18 11:10: Sodium 140, Potassium 4.4, Chloride 103, Carbon Dioxide 29, Anion Gap 12.4, BUN 12, Creatinine 1.00, Estimated Creat Clear 65, Estimated GFR 74, Est GFR ( Amer) 89, Glucose 149 H, Calcium 8.4 L, Total Bilirubin 0.4, AST 12 L, ALT 16, Alkaline Phosphatase 68, Troponin I < 0.02, Total Protein 7.0, Albumin 3.5, Globulin 3.5 H, Albumin/Globulin Ratio 1.0 L, Amylase 58, Lipase 117 04/23/18 14:10: Urine Color Yellow, Urine Appearance Clear, Urine pH 6.5, Ur Specific [place] 1.015, Urine Protein Negative, Urine Glucose (UA) Negative, Urine Ketones Negative, Urine Blood Negative, Urine Nitrate Negative, Urine Bilirubin Negative, Urine Urobilinogen 0.2, Ur Leukocyte Esterase Negative, Urine RBC None, Urine WBC Occasional, Ur Squamous Epith Cells Occasional, Urine Bacteria Trace, Urine Mucus Trace I & O for Last 24 hours: Intake & Output 04/21/18 04/22/18 04/23/18 04/24/18 11:59 11:59 11:59 11:59 Intake Total 0 / 0 Balance 0 / 0 Weight 150 lb 121 lb 5 oz - Constitutional no acute distress, thin - *Routine HEENT Exam Head: Present: normocephalic Eye: Present: EOMI, PERRL. Absent: conjunctival icterus ENT: Present: mucous membranes dry - *Routine Neck Exam Absent: JVD - *Routine Respiratory Exam Present: CTA bilaterally - *Routine Cardiovascular Exam Present: RRR, murmur - *Routine Abdominal Exam Present: soft, tenderness Comments: murphys sign is positive - *Routine Extremities Exam Present: full ROM - *Routine Skin Exam Present: intact - *Routine Neurological Exam Present: alert, oriented X3, CN II-XII intact - Routine Psychiatric Exam Present: normal affect. Absent: auditory hallucinations, good insight Assessment and Plan (1) Abdominal pain, generalized Current visit: Yes Status: Acute Category: Medical Code(s): R10.84 - Generalized abdominal pain (2) Low body mass index (BMI) Current visit: Yes Status: Acute Category: Medical (3) Tobacco use Current visit: Yes Status: Acute Category: Medical Code(s): Z72.0 - Tobacco use
[2018-04-24 07:26] LABS: Albumin Level 3.2 gm/dL (3.4-5.0); Anion Gap 12.2 mEq/L (5-15); Basophils % 0.4 % (0.1-2.0); Bilirubin,Total 0.4 mg/dL (0.2-1.0); Calcium 8.1 mg/dL (8.5-10.1); Eosinophils % 0.3 % (0.1-12.0); Globulin 3.3 gm/dl (1.3-3.2); Hemoglobin 12.2 g/dL (14.1-18.0); Lymphocytes # 1.2 K/mm3 (0.7-4.5); Lymphocytes % 12.5 % (10-50); Mean Corpuscular HGB Conc 31.4 g/dL (31.8-35.4); Mean Corpuscular Hemoglobin 31.6 pg (27.0-31.2); Mean Corpuscular Volume 100.9 fl (80-94); Monocytes # 0.4 K/mm3 (0.1-1.0); Monocytes % 4.1 % (1.7-9.3); Neutrophils # 8.2 K/mm3 (1.8-7.8); Neutrophils % 82.8 % (37.0-80.0); Platelet Count 175 K/mm3 (142-424); Potassium 4.2 mmoL/L (3.5-5.1); Red Blood Count 3.86 M/mm3 (4.60-6.20); Total Protein,Serum 6.5 gm/dL (6.4-8.2); White Blood Count 9.9 K/mm3 (4.8-10.8)
--- NOTE | 2018-04-24 08:18 | Progress Note ---
Subjective Narrative: Patient is a states that he is still having some abdominal pain. He states that this is throughout his abdomen. Exam Vital signs and Labs for Last 24 Hours: Temp Pulse Resp BP Pulse Ox 98.6 F 51 L 18 112/62 99 04/24/18 07:46 04/24/18 07:46 04/24/18 07:46 04/24/18 07:46 04/24/18 07:46 Laboratory Results - last 24 hr 04/23/18 11:10: WBC 9.1, RBC 3.99 L, Hgb 13.4 L, Hct 42.3, MCV 106.0 H, MCH 33.6 H, MCHC 31.7 L, RDW 12.1, Plt Count 187, MPV 8.4, Neut % (Auto) 63.1, Lymph % (Auto) 30.9, [place] % (Auto) 4.1, Eos % (Auto) 1.3, Baso % (Auto) 0.6, Neut # (Auto) 5.7, Lymph # (Auto) 2.8, [place] # (Auto) 0.4, Eos # (Auto) 0.1, Baso # (Auto) 0.1 04/23/18 11:10: Sodium 140, Potassium 4.4, Chloride 103, Carbon Dioxide 29, Anion Gap 12.4, BUN 12, Creatinine 1.00, Estimated Creat Clear 65, Estimated GFR 74, Est GFR ( Amer) 89, Glucose 149 H, Calcium 8.4 L, Total Bilirubin 0.4, AST 12 L, ALT 16, Alkaline Phosphatase 68, Troponin I < 0.02, Total Protein 7.0, Albumin 3.5, Globulin 3.5 H, Albumin/Globulin Ratio 1.0 L, Amylase 58, Lipase 117 04/23/18 14:10: Urine Color Yellow, Urine Appearance Clear, Urine pH 6.5, Ur Specific [place] 1.015, Urine Protein Negative, Urine Glucose (UA) Negative, Urine Ketones Negative, Urine Blood Negative, Urine Nitrate Negative, Urine Bilirubin Negative, Urine Urobilinogen 0.2, Ur Leukocyte Esterase Negative, Urine RBC None, Urine WBC Occasional, Ur Squamous Epith Cells Occasional, Urine Bacteria Trace, Urine Mucus Trace 04/24/18 06:24: WBC 9.9, RBC 3.86 L, Hgb 12.2 L, Hct 39.0 L, MCV 100.9 H, MCH 31.6 H, MCHC 31.4 L, RDW 12.0, Plt Count 175, MPV 9.0, Neut % (Auto) 82.8 H, Lymph % (Auto) 12.5, [place] % (Auto) 4.1, Eos % (Auto) 0.3, Baso % (Auto) 0.4, Neut # (Auto) 8.2 H, Lymph # (Auto) 1.2, [place] # (Auto) 0.4, Eos # (Auto) 0.0, Baso # (Auto) 0.0 04/24/18 06:24: Sodium 138, Potassium 4.2, Chloride 105, Carbon Dioxide 25, Anion Gap 12.2, BUN 12, Creatinine 0.86, Estimated Creat Clear 53, Estimated GFR 88, Est GFR ( Amer) 106, Glucose 110 H D, Calcium 8.1 L, Total Bilirubin 0.4, AST 16 D, ALT 14, Alkaline Phosphatase 64, Total Protein 6.5, Albumin 3.2 L, Globulin 3.3 H, Albumin/Globulin Ratio 1.0 L, Lipase 119 I & O for Last 24 hours: Intake & Output 04/21/18 04/22/18 04/23/18 04/24/18 11:59 11:59 11:59 11:59 Intake Total 1810 / 1810 Output Total 200 / 200 Balance 1610 / 1610 Weight 150 lb 121 lb 5 oz - *Routine Abdominal Exam Present: soft, tenderness Comments: Tender in right upper quadrant with voluntary guarding Progress Note: A&P Assessment and Plan for All Diagnoses:: Patient is scheduled for a gallbladder ultrasound today. Suspect possible gallbladder disease. At this point patient states that he does not want any surgery and refuses however.
--- NOTE | 2018-04-24 10:54 | Progress Note ---
Subjective Patient reports: feels better Narrative: Patient now has no complaints of abdominal pain. He states that he is hungry. Exam Vital signs and Labs for Last 24 Hours: Temp Pulse Resp BP Pulse Ox 98.6 F 51 L 18 112/62 99 04/24/18 07:46 04/24/18 08:00 04/24/18 07:46 04/24/18 07:46 04/24/18 08:00 Laboratory Results - last 24 hr 04/23/18 11:10: WBC 9.1, RBC 3.99 L, Hgb 13.4 L, Hct 42.3, MCV 106.0 H, MCH 33.6 H, MCHC 31.7 L, RDW 12.1, Plt Count 187, MPV 8.4, Neut % (Auto) 63.1, Lymph % (Auto) 30.9, [place] % (Auto) 4.1, Eos % (Auto) 1.3, Baso % (Auto) 0.6, Neut # (Auto) 5.7, Lymph # (Auto) 2.8, [place] # (Auto) 0.4, Eos # (Auto) 0.1, Baso # (Auto) 0.1 04/23/18 11:10: Sodium 140, Potassium 4.4, Chloride 103, Carbon Dioxide 29, Anion Gap 12.4, BUN 12, Creatinine 1.00, Estimated Creat Clear 65, Estimated GFR 74, Est GFR ( Amer) 89, Glucose 149 H, Calcium 8.4 L, Total Bilirubin 0.4, AST 12 L, ALT 16, Alkaline Phosphatase 68, Troponin I < 0.02, Total Protein 7.0, Albumin 3.5, Globulin 3.5 H, Albumin/Globulin Ratio 1.0 L, Amylase 58, Lipase 117 04/23/18 14:10: Urine Color Yellow, Urine Appearance Clear, Urine pH 6.5, Ur Specific [place] 1.015, Urine Protein Negative, Urine Glucose (UA) Negative, Urine Ketones Negative, Urine Blood Negative, Urine Nitrate Negative, Urine Bilirubin Negative, Urine Urobilinogen 0.2, Ur Leukocyte Esterase Negative, Urine RBC None, Urine WBC Occasional, Ur Squamous Epith Cells Occasional, Urine Bacteria Trace, Urine Mucus Trace 04/24/18 06:24: WBC 9.9, RBC 3.86 L, Hgb 12.2 L, Hct 39.0 L, MCV 100.9 H, MCH 31.6 H, MCHC 31.4 L, RDW 12.0, Plt Count 175, MPV 9.0, Neut % (Auto) 82.8 H, Lymph % (Auto) 12.5, [place] % (Auto) 4.1, Eos % (Auto) 0.3, Baso % (Auto) 0.4, [place] # (Auto) 8.2 H, Lymph # (Auto) 1.2, [place] # (Auto) 0.4, Eos # (Auto) 0.0, Baso # (Auto) 0.0 04/24/18 06:24: Sodium 138, Potassium 4.2, Chloride 105, Carbon Dioxide 25, Anion Gap 12.2, BUN 12, Creatinine 0.86, Estimated Creat Clear 53, Estimated GFR 88, Est GFR ( Amer) 106, Glucose 110 H D, Calcium 8.1 L, Total Bilirubin 0.4, AST 16 D, ALT 14, Alkaline Phosphatase 64, Total Protein 6.5, Albumin 3.2 L, Globulin 3.3 H, Albumin/Globulin Ratio 1.0 L, Lipase 119 I & O for Last 24 hours: Intake & Output 04/21/18 04/22/18 04/23/18 04/24/18 11:59 11:59 11:59 11:59 Intake Total 1810 / 1810 Output Total 200 / 200 Balance 1610 / 1610 Weight 150 lb 121 lb 5 oz - *Routine Abdominal Exam Present: soft. Absent: tenderness Progress Note: A&P Assessment and Plan for All Diagnoses:: Gallbladder ultrasound revealed somewhat distended gallbladder but no stones, thickening, no pericholecystic fluid, 9 mm common bile duct. At this time gallbladder etiology seems somewhat equivocal. I will go ahead and start him on a diet and see how he tolerates this.
--- NOTE | 2018-04-24 13:53 | Progress Note ---
Internal Medicine - PN: Subj *Date: 04/24/18 *Time: 08:00 Interval history: pt doing better awaiting gb u/s Exam Vital signs and Labs for Last 24 Hours: Temp Pulse Resp BP Pulse Ox 98.6 F 51 L 18 112/62 99 04/24/18 07:46 04/24/18 08:00 04/24/18 07:46 04/24/18 07:46 04/24/18 08:00 Laboratory Results - last 24 hr 04/23/18 14:10: Urine Color Yellow, Urine Appearance Clear, Urine pH 6.5, Ur Specific [place] 1.015, Urine Protein Negative, Urine Glucose (UA) Negative, Urine Ketones Negative, Urine Blood Negative, Urine Nitrate Negative, Urine Bilirubin Negative, Urine Urobilinogen 0.2, Ur Leukocyte Esterase Negative, Urine RBC None, Urine WBC Occasional, Ur Squamous Epith Cells Occasional, Urine Bacteria Trace, Urine Mucus Trace 04/24/18 06:24: WBC 9.9, RBC 3.86 L, Hgb 12.2 L, Hct 39.0 L, MCV 100.9 H, MCH 31.6 H, MCHC 31.4 L, RDW 12.0, Plt Count 175, MPV 9.0, Neut % (Auto) 82.8 H, Lymph % (Auto) 12.5, [place] % (Auto) 4.1, Eos % (Auto) 0.3, Baso % (Auto) 0.4, Neut # (Auto) 8.2 H, Lymph # (Auto) 1.2, [place] # (Auto) 0.4, Eos # (Auto) 0.0, Baso # (Auto) 0.0 04/24/18 06:24: Sodium 138, Potassium 4.2, Chloride 105, Carbon Dioxide 25, Anion Gap 12.2, BUN 12, Creatinine 0.86, Estimated Creat Clear 53, Estimated GFR 88, Est GFR ( Amer) 106, Glucose 110 H D, Calcium 8.1 L, Total Bilirubin 0.4, AST 16 D, ALT 14, Alkaline Phosphatase 64, Total Protein 6.5, Albumin 3.2 L, Globulin 3.3 H, Albumin/Globulin Ratio 1.0 L, Lipase 119 I & O for Last 24 hours: Intake & Output 04/22/18 04/23/18 04/24/18 04/25/18 11:59 11:59 11:59 11:59 Intake Total 1810 / 1810 0 / 0 Output Total 200 / 200 Balance 1610 / 1610 0 / 0 Weight 150 lb 121 lb 5 oz - Constitutional no acute distress, thin - *Routine HEENT Exam Head: Present: normocephalic Eye: Present: EOMI, PERRL ENT: Present: mucous membranes dry - *Routine Neck Exam Present: supple - *Routine Respiratory Exam Present: CTA bilaterally - *Routine Cardiovascular Exam Present: RRR, murmur - *Routine Abdominal Exam Present: soft, tenderness - *Routine Extremities Exam Absent: edema - *Routine Skin Exam Present: intact - *Routine Neurological Exam Present: alert, CN II-XII intact - Routine Psychiatric Exam Present: normal affect Assessment and Plan (1) Abdominal pain, generalized Current visit: Yes Status: Acute Category: Medical Code(s): R10.84 - Generalized abdominal pain (2) Low body mass index (BMI) Current visit: Yes Status: Acute Category: Medical (3) Tobacco use Current visit: Yes Status: Acute Category: Medical Code(s): Z72.0 - Tobacco use
--- NOTE | 2018-04-25 06:45 | Progress Note ---
Subjective Patient reports: feels better (the patient states that he "does not want surgery no matter what".) Exam Vital signs and Labs for Last 24 Hours: Temp Pulse Resp BP Pulse Ox 98.9 F 45 L 17 134/64 100 04/25/18 04:00 04/25/18 04:00 04/25/18 04:00 04/25/18 04:00 04/25/18 04:00 Laboratory Results - last 24 hr 04/24/18 06:24: WBC 9.9, RBC 3.86 L, Hgb 12.2 L, Hct 39.0 L, MCV 100.9 H, MCH 31.6 H, MCHC 31.4 L, RDW 12.0, Plt Count 175, MPV 9.0, Neut % (Auto) 82.8 H, Lymph % (Auto) 12.5, [place] % (Auto) 4.1, Eos % (Auto) 0.3, Baso % (Auto) 0.4, Neut # (Auto) 8.2 H, Lymph # (Auto) 1.2, [place] # (Auto) 0.4, Eos # (Auto) 0.0, Baso # (Auto) 0.0 04/24/18 06:24: Sodium 138, Potassium 4.2, Chloride 105, Carbon Dioxide 25, Anion Gap 12.2, BUN 12, Creatinine 0.86, Estimated Creat Clear 53, Estimated GFR 88, Est GFR ( Amer) 106, Glucose 110 H D, Calcium 8.1 L, Total Bilirubin 0.4, AST 16 D, ALT 14, Alkaline Phosphatase 64, Total Protein 6.5, Albumin 3.2 L, Globulin 3.3 H, Albumin/Globulin Ratio 1.0 L, Lipase 119 I & O for Last 24 hours: Intake & Output 04/22/18 04/23/18 04/24/18 04/25/18 11:59 11:59 11:59 11:59 Intake Total 1810 / 1810 860 / 860 Output Total 200 / 200 450 / 450 Balance 1610 / 1610 410 / 410 Weight 150 lb 121 lb 5 oz 121 lb 4.985 oz - Constitutional no acute distress - *Routine Abdominal Exam Present: soft. Absent: tenderness Progress Note: A&P (1) Abdominal pain, generalized Status: Acute Assessment and plan: improving. refuses surgery "even if indicated". although biliary disease remains a possibility, he "wants to go home" and "does not want surgery". continue management as per PCP likely D/C home soon Current Visit: Yes (2) Low body mass index (BMI) Status: Acute Current Visit: Yes (3) Tobacco use Status: Acute Current Visit: Yes
[2018-04-25 07:15] LABS: Hepatitis B Core Antibody IgM Negative (Negative); Hepatitis B Surface Antigen Negative (Negative)
[2018-04-25 13:35] LABS: Hepatitis C Antibody <0.1 s/co ratio (0.0-0.9)
--- NOTE | 2018-04-25 13:40 | Discharge Summary ---
General - General Admission date:: 04/23/18 Discharge date: 04/25/18 HPI HPI: this wm from the [facility] started with abd pain - rought in by ambulance with complaint of abdominal pain and vomiting. Patient states symptoms started about 730 this morning. He has vomited twice. His abdominal pain is diffuse. Denies diarrhea. States "I emptied my bowels out" but it was not diarrhea. No blood. States he has had this before, many years ago, does not remember any of the details. He has had a prior abdominal surgery for ulcers and appendectomy. He is a smoker, nondrinker. Last ate breakfast this morning after the pain had started. Hospital Course Hospital Course: ct scan:IMPRESSION: 1. Mild generalized ascites. 2. Nonspecific bowel gas pattern with some scattered air-fluid levels within the small bowel which may be seen with enteritis or ileus. 3. Distended gallbladder. No radio opaque stones. gallbladder us:IMPRESSION: 1. Distended gallbladder with a small amount of sludge and mild prominence of the common bile duct at 9 mm. No stones apparent 2. Small amount of ascites Surgery consult-see note At this time patient has refusing all interventions and wants to go home. Objective Vital signs: Temp Pulse Resp BP Pulse Ox 98.9 F 54 L 18 123/64 95 04/25/18 08:00 04/25/18 08:00 04/25/18 08:00 04/25/18 08:00 04/25/18 08:00 no acute distress - *Routine HEENT Exam Head: Present: normocephalic Eye: Present: PERRL ENT: Present: mucous membranes moist - *Routine Respiratory Exam Present: CTA bilaterally - *Routine Cardiovascular Exam Present: RRR - *Routine Abdominal Exam Present: soft, normoactive bowel sounds, tenderness - *Routine Extremities Exam Present: full ROM - *Routine Skin Exam Present: intact - *Routine Neurological Exam Present: alert, oriented X3 - Routine Psychiatric Exam Present: normal affect Results Labs on day of discharge: Labs from last 24 hours 04/23/18 11:10 Hepatitis A IgM Ab Negative Hep Bs Antigen Negative Hep B Core IgM Ab Negative Hepatitis C Antibody <0.1 - Additional Comments missy will round later today, all orders per missy DS: Diagnosis - Discharge Diagnosis (1) Abdominal pain, generalized Status: Acute (2) Low body mass index (BMI) Status: Acute (3) Tobacco use Status: Acute Discharge Plan - Patient Discharge Instructions ACTIVITY: Continue current activity DIET: continue same diet Patient Instructions: DI for Abdominal Pain-Adult - Follow up Plan Follow up with: Zay Bob MD [Primary Care Provider] - 2 weeks Disposition: Home, Self-Jail Medications: Home Medications Medication Instructions Recorded Confirmed Type docusate sodium 250 mg capsule 250 mg PO DAILY 04/12/17 04/23/18 History folic acid 1 mg tablet 1 mg PO DAILY 04/12/17 04/23/18 History mirtazapine 15 mg tablet 15 mg PO HS 04/12/17 04/23/18 History multivitamin capsule 2 cap PO BID 04/12/17 04/23/18 History loperamide 2 mg capsule 2 mg PO Q4HP PRN 04/11/18 04/23/18 History Tamsulosin HCl [Flomax 0.4mg 0.4 mg PO HS 04/23/18 04/23/18 History capsule] Thiamine HCl [Vitamin B-1 100mg 100 mg PO DAILY 04/23/18 04/23/18 History tablet] Trazodone HCl 50 mg PO HS 04/23/18 04/23/18 History Prescriptions/Medication Reconciliation: Continue docusate sodium 250 mg capsule 250 mg PO DAILY folic acid 1 mg tablet 1 mg PO DAILY mirtazapine 15 mg tablet 15 mg PO HS multivitamin capsule 2 cap PO BID loperamide 2 mg capsule 2 mg PO Q4HP PRN PRN Reason: Diarrhea Thiamine HCl [Vitamin B-1 100mg tablet] 100 mg PO DAILY Trazodone HCl 50 mg PO HS Tamsulosin HCl [Flomax 0.4mg capsule] 0.4 mg PO HS
== END 2018-04-25 14:26 | disposition home or self-care (01) ==
LOC: 2ND 11:16 → ER 11:16 → 2ND 14:09
PROVIDERS: ADMIT Emergency Medicine; ATTEND Emergency Medicine
CPT/HCPCS: 36415; 74177; 76705; 80053; 80074; 81001; 82150; 83690; 84484; 85025; 93005; 96365; 96375; 99284; G0378; J2405; Q9967